=== PATIENT | male | born 1995 | race Caucasian/White ===

== ENCOUNTER 2016-11-04 21:09 | Observation (INO) | payer OTHER ==
[2016-11-04] MEDS ORDERED: SODIUM CHLORIDE 0.9% 1,000 ML IV STA (21:50)
--- NOTE | 2016-11-04 22:22 | ED ---
General Adult HPI - General Chief complaint: Nausea/Vomiting/Diarrhea Stated complaint: Diarrhea Time Seen by Provider: 11/04/16 21:33 Source: patient, family, RN notes reviewed Mode of arrival: wheelchair Limitations: no limitations - History of Present Illness Initial comments: 21-year-old male with past medical history of cerebral palsy presents with a one -day history of watery diarrhea. Patient also complains of crampy abdominal pain. States he has had many episodes of watery diarrhea with mucus. There is no blood in the diarrhea. Patient was recently treated for C. difficile colitis he completed a 14 day course of metronidazole which finished approximately one week ago. Patient had received amoxicillin for dental prophylaxis prior to initial episode of C. diff colitis. Patient is not currently on any medications. He denies fever. - Related Data Home Medications Medication Instructions Recorded Confirmed No Known Home Medications [No 11/04/16 11/04/16 Known Home Medications] Allergies Allergy/AdvReac Type Severity Reaction Status Date / Time No Known Allergies Allergy Verified 11/04/16 22:01 Review of Systems ROS Statement: Those systems with pertinent positive or pertinent negative responses have been documented in the HPI. ROS Other: All systems not noted in ROS Statement are negative. Constitutional: Denies: fever, chills Endocrine: Denies: fatigue Gastrointestinal: Reports: abdominal pain, diarrhea Past Medical History Additional Past Medical History / Comment(s): CP History of Any Multi-Drug Resistant Organisms: C-DIFF Past Surgical History: Back Surgery, Orthopedic Surgery Additional Past Surgical History / Comment(s): Right hip replacement 2009, bilateral feet Past Psychological History: Anxiety Smoking Status: Never smoker Past Alcohol Use History: None Reported Past Drug Use History: None Reported General Exam Limitations: no limitations General appearance: alert, in no apparent distress Head exam: Present: atraumatic, normocephalic Eye exam: Present: normal appearance, PERRL, EOMI ENT exam: Present: mucous membranes dry Respiratory exam: Present: normal lung sounds bilaterally Cardiovascular Exam: Present: normal rhythm, tachycardia GI/Abdominal exam: Present: soft, distended, tenderness (Mildly distended, mild generalized tenderness to palpation). Absent: guarding, rebound Extremities exam: Present: normal inspection. Absent: pedal edema Neurological exam: Present: alert, oriented X3, other (Patient is wheelchair bound secondary to cerebral palsy) Skin exam: Present: warm, dry Course Vital Signs 11/04/16 11/04/16 21:14 22:55 Temperature 98.7 F 98.2 F Pulse Rate 100 91 Respiratory 18 18 Rate Blood Pressure 185/100 154/80 O2 Sat by Pulse 100 95 Oximetry Medical Decision Making - Medical Decision Making 21-year-old male presenting with profuse watery diarrhea. Patient recent diagnosis treatment for C. diff colitis. He completed a course of Flagyl. On examination patient has mildly distended abdomen with mild diffuse tenderness to palpation. Dry mucous membranes and tachycardia noted. CBC and BMP are obtained and are unremarkable. C. difficile toxin assay and PCR are pending. Patient is started on metronidazole and oral vancomycin for presumed recurrence of C. difficile colitis. Abdominal x-ray: Negative for air-fluid levels, negative for free intraperitoneal air. Negative for obstruction. Diagnosis: diarrhea, dehydration, concern for C. difficile colitis failed outpatient treatment. Patient will be admitted to internal medicine. - Lab Data Result diagrams: 11/04/16 19:55 11/04/16 19:55 Lab Results 11/04/16 11/04/16 Range/Units 19:55 19:55 WBC 8.4 (3.8-10.6) k/uL RBC 5.67 (4.30-5.90) m/uL Hgb 16.7 (13.0-17.5) gm/dL Hct 47.3 (39.0-53.0) % MCV 83.5 (80.0-100.0) fL MCH 29.4 (25.0-35.0) pg MCHC 35.2 (31.0-37.0) g/dL RDW 13.3 (11.5-15.5) % Plt Count 189 (150-450) k/uL Neutrophils % 66 % Lymphocytes % 23 % Monocytes % 7 % Eosinophils % 2 % Basophils % 1 % Neutrophils # 5.5 (1.3-7.7) k/uL Lymphocytes # 2.0 (1.0-4.8) k/uL Monocytes # 0.6 (0-1.0) k/uL Eosinophils # 0.2 (0-0.7) k/uL Basophils # 0.0 (0-0.2) k/uL Sodium 142 (137-145) mmol/L Potassium 3.8 (3.5-5.1) mmol/L Chloride 103 (98-107) mmol/L Carbon Dioxide 25 (22-30) mmol/L Anion Gap 14 mmol/L BUN 20 (9-20) mg/dL Creatinine 0.83 (0.66-1.25) mg/dL Est GFR (MDRD) Af Amer >60 (>60 ml/min/1.73 sqM) Est GFR (MDRD) Non-Af >60 (>60 ml/min/1.73 sqM) Glucose 105 H (74-99) mg/dL Calcium 9.8 (8.4-10.2) mg/dL Total Bilirubin 1.7 H (0.2-1.3) mg/dL AST 18 (17-59) U/L ALT 36 (21-72) U/L Alkaline Phosphatase 49 (38-126) U/L Total Protein 7.8 (6.3-8.2) g/dL Albumin 5.0 (3.5-5.0) g/dL Disposition Clinical Impression: Dehydration, Clostridium difficile infection, Diarrhea Disposition: ADMITTED IP TO THIS [facility] Referrals: None,Stated [Primary Care Provider] - 1-2 days Decision to Admit Reason: Admit from EC Decision Date: 11/04/16 Decision Time: 22:22
[2016-11-04 22:26] LABS: Basophils % (A) 1 %; CH 29.8; CHCM 35.8; Eosinophils # (A) 0.2 k/uL (0-0.7); Eosinophils % (A) 2 %; HCT 47.3 % (39.0-53.0); HDW 2.83; HGB 16.7 gm/dL (13.0-17.5); Luc # (Auto) 0.12; Luc % (Auto) 2; Lymphocytes % (A) 23 %; MCH 29.4 pg (25.0-35.0); MCHC 35.2 g/dL (31.0-37.0); MCV 83.5 fL (80.0-100.0); Mean Platelet Volume 9.4; Monocytes # (A) 0.6 k/uL (0-1.0); Monocytes % (A) 7 %; Neutrophils # (A) 5.5 k/uL (1.3-7.7); Neutrophils % (A) 66 %; RBC 5.67 m/uL (4.30-5.90); RDW 13.3 % (11.5-15.5); WBC 8.4 k/uL (3.8-10.6)
[2016-11-04 22:38] LABS: ALT 36 U/L (21-72); AST 18 U/L (17-59); Alkaline Phosphatase 49 U/L (38-126); Anion Gap 14 mmol/L; Blood Urea Nitrogen 20 mg/dL (9-20); Calcium 9.8 mg/dL (8.4-10.2); Carbon Dioxide 25 mmol/L (22-30); Chloride 103 mmol/L (98-107); Glucose 105 mg/dL (74-99); Non-African American GFR(MDRD) >60 (>60 ml/min/1.73 sqM); Potassium 3.8 mmol/L (3.5-5.1); Sodium 142 mmol/L (137-145); Total Bilirubin 1.7 mg/dL (0.2-1.3); Total Protein 7.8 g/dL (6.3-8.2)
[2016-11-04] MEDS ORDERED: metroNIDAZOLE-NS PMX 500 MG in SALINE 1 100ML.BAG IVPB ONE (22:45)
[2016-11-04] MEDS ORDERED: NALOXONE 0.4 MG/ML 1 ML VIAL IV PRN (22:58)
--- NOTE | 2016-11-04 23:28 | XR ---
EXAM: XR Abdomen, 1 View CLINICAL HISTORY: Reason: pain TECHNIQUE: Frontal supine view of the abdomen/pelvis. COMPARISON: No relevant prior studies available. FINDINGS: Gastrointestinal tract: Bowel gas pattern is nonspecific with gas distributed throughout nondilated small and large bowel. No evidence of bowel obstruction. Organs: No radiopaque renal calculi. Small calcifications in the lower pelvis bilaterally most likely representing calcified pelvic phleboliths. Bones/joints: Lumbar levoscoliosis. S1 spina bifida occulta. Previous right hip arthroplasty with heterotopic ossification about the right hip. IMPRESSION: No radiographic evidence of acute abdominal disease or bowel obstruction.
[2016-11-05 00:11] VITALS: BMI 23.3
[2016-11-05] MEDS: D5-0.45% NACL WITH KCL 30MEQ/L 1,000 ML IV SCH ×3 (00:15→16:22)
[2016-11-05] MEDS: VANCOMYCIN ORAL SOLUTION 250 MG/5 ML BOTTLE PO SCH ×2 (00:20→05:30)
[2016-11-05 06:58] LABS: Basophils % (A) 0 %; CH 29.1; CHCM 34.6; Eosinophils # (A) 0.3 k/uL (0-0.7); Eosinophils % (A) 4 %; HCT 42.6 % (39.0-53.0); HDW 2.88; HGB 15.1 gm/dL (13.0-17.5); Luc % (Auto) 3; Lymphocytes # (A) 1.6 k/uL (1.0-4.8); Lymphocytes % (A) 22 %; MCHC 35.5 g/dL (31.0-37.0); MCV 84.5 fL (80.0-100.0); Mean Platelet Volume 8.4; Monocytes # (A) 0.5 k/uL (0-1.0); Monocytes % (A) 7 %; Neutrophils # (A) 4.9 k/uL (1.3-7.7); Neutrophils % (A) 65 %; RBC 5.04 m/uL (4.30-5.90); WBC 7.5 k/uL (3.8-10.6)
[2016-11-05 07:21] LABS: Anion Gap 14 mmol/L; Blood Urea Nitrogen 13 mg/dL (9-20); Calcium 9.1 mg/dL (8.4-10.2); Carbon Dioxide 19 mmol/L (22-30); Chloride 110 mmol/L (98-107); Glucose 112 mg/dL (74-99); Non-African American GFR(MDRD) >60 (>60 ml/min/1.73 sqM); Potassium 3.9 mmol/L (3.5-5.1); Sodium 143 mmol/L (137-145)
[2016-11-05] MEDS ORDERED: metroNIDAZOLE-NS PMX 500 MG in SALINE 1 100ML.BAG IVPB SCH (09:00)
[2016-11-05] MEDS: CHOLESTYRAMINE (WITH SUGAR) 4 GM PACKET PO SCH (16:22)
[2016-11-06] MEDS: D5-0.45% NACL WITH KCL 30MEQ/L 1,000 ML IV SCH (05:22)
[2016-11-06] MEDS: CHOLESTYRAMINE (WITH SUGAR) 4 GM PACKET PO SCH ×2 (07:13→09:35)
[2016-11-06] MEDS: VANCOMYCIN ORAL SOLUTION 250 MG/5 ML BOTTLE PO SCH (07:14)
[2016-11-06 07:49] LABS: Anion Gap 10 mmol/L; Blood Urea Nitrogen 11 mg/dL (9-20); Calcium 9.4 mg/dL (8.4-10.2); Carbon Dioxide 25 mmol/L (22-30); Chloride 109 mmol/L (98-107); Glucose 101 mg/dL (74-99); Non-African American GFR(MDRD) >60 (>60 ml/min/1.73 sqM); Potassium 4.5 mmol/L (3.5-5.1); Sodium 144 mmol/L (137-145)
[2016-11-06 07:50] VITALS: BP 144/88; RESP 17; TEMP 97.4
[2016-11-06 08:39] VITALS: PULSE 96
--- NOTE | 2016-11-07 17:12 | P.DS ---
Providers Date of admission: 11/04/16 22:58 Attending physician: Tomi Barrios Primary care physician: Stated None Hospital Course: He was admitted with diarrhea patient is a recent C. diff for because of which there was a concern of C. diff patient was started on oral vancomycin which was subsequently discontinued. Patient was tested for C. diff with Lita testing which was negative twice. Patient was subsequently discharged on symptomatically treatment with Questran patient's symptoms were improved with Questran. PHYSICAL EXAMINATION: GENERAL: The patient is alert and oriented x3, not in any acute distress. Well developed, well nourished. HEENT: Pupils are round and equally reacting to light. EOMI. No scleral icterus. No conjunctival pallor. Normocephalic, atraumatic. No pharyngeal erythema. No thyromegaly. CARDIOVASCULAR: S1 and S2 present. No murmurs, rubs, or gallops. PULMONARY: Chest is clear to auscultation, no wheezing or crackles. ABDOMEN: Soft, nontender, nondistended, normoactive bowel sounds. No palpable organomegaly. MUSCULOSKELETAL: No joint swelling or deformity. EXTREMITIES: No cyanosis, clubbing, or pedal edema. NEUROLOGICAL: Gross neurological examination did not reveal any focal deficits. SKIN: No rashes. Plan - Discharge Summary New Discharge Prescriptions: New Cholestyramine (with Sugar) [Questran Packet] 4 gm PO TID BETWEEN MEALS #30 packet L.acidoph,Paracasei, B.lactis [Probiotic] 1 each PO BID #30 capsule Discharge Medication List Cholestyramine (with Sugar) [Questran Packet] 4 gm PO TID BETWEEN MEALS #30 packet 11/06/16 [Rx] L.acidoph,Paracasei, B.lactis [Probiotic] 1 each PO BID #30 capsule 11/06/16 [Rx ] Follow up Appointment(s)/Referral(s): None,Stated [Primary Care Provider] - 1-2 days (Please call your primary care doctor for a follow up appointment ) Patient Instructions/Handouts: Dehydration (DC), Acute Diarrhea (GEN) Discharge Disposition: HOME SELF-CARE
--- NOTE | 2016-11-08 07:09 | HP ---
A 21-year-old with history of cerebral palsy, came in because of watery diarrhea , multiple episodes which started yesterday and patient still had 3 episodes. The patient's C. difficile at this time is negative. Patient was treated about a week ago, completed therapy for Clostridium difficile colitis with oral vancomycin about a week ago. I completed 10 days of therapy and first C. difficile testing was negative because of which I repeated another C. difficile testing because the testing is basically ( ) which sensitivity of which is low, although PCR is going to be positive because the patient was recently treated for C. difficile and most of the times it is expected to be positive for a month to 2 months to complete treatment of C. difficile and since patient was still having diarrhea will ( ) symptomatic treatment with Questran and see how he responds and we will keep the patient today here because of continued diarrhea and concerns of dehydration, although patient is not significantly dehydrated at this point of time. The patient's mother was also treated for C. difficile ( ) because of which there was significant concern about C. difficile because of which I repeated C. difficile ( ) which came back negative again. REVIEW OF SYSTEMS: ( ) GASTROINTESTINAL: As described in HPI. The patient also has crampy abdominal pain secondary to diarrhea. HOME MEDICATIONS: None. PAST MEDICAL HISTORY: Significant for C. difficile colitis and patient had back surgery, orthopedic surgery. SOCIAL HISTORY: Denied any smoking or alcohol abuse or any drug abuse. FAMILY HISTORY: No significant family history of hypertension or diabetes in the family. PHYSICAL EXAMINATION: Temperature 98.7, pulse of 91, respiratory rate of 18, blood pressure 154/80 saturating at 95% on room air. ( ) ABDOMINAL EXAMINATION: The patient's abdomen is soft, nontender, although patient does have hyperactive bowel sounds. ( ) LABORATORY DATA: CBC, CMP no significant abnormality was appreciated, although patient is ( ). The patient is appropriately on half normal saline. Because of the hyperchloremia. The patient's bicarbonate is a bit low. The patient was started on cholestyramine. ASSESSMENT AND PLAN: 1. Diarrhea, may be related to gastroenteritis, ruled out Clostridium difficile. Will continue to monitor today. Patient will be discharged on symptomatic treatment, possibility of discharge tomorrow. 2. Recent Clostridium difficile. 3. Chemical dehydration. 4. Acidosis, nonanion gap secondary to hyperchloremia, because of which patient is on half normal saline. 5. History of cerebral palsy for which supportive management. Most probably patient will be discharged tomorrow if patient's symptoms of diarrhea improve. MTDD
== END 2016-11-06 14:08 | disposition home or self-care (01) ==
LOC: EC 21:09 → INTOOBSV 22:58 → 3SUR 22:58 → EEVIPCON 22:58
PROVIDERS: ADMIT Internal Medicine; ATTEND Internal Medicine
DX: R19.7 Diarrhea, unspecified (principal); G80.9 Cerebral palsy, unspecified; F41.9 Anxiety disorder, unspecified; R00.0 Tachycardia, unspecified; E86.0 Dehydration; E87.2 Acidosis; Z86.19 Personal history of other infectious and parasitic diseases
CPT/HCPCS: 96365 ×2; 99285 ×2; 96366; 36415; 80053; 80048 ×2; 85025 ×2; 87324 ×2; 74000; G0378 ×3

== ENCOUNTER 2024-05-02 18:39 | Emergency (ER) | payer OTHER ==
[2024-05-02 18:53] VITALS: RESP 20; TEMP 99.6
--- NOTE | 2024-05-02 19:18 | ED ---
URI HPI - General Chief Complaint: Upper Respiratory Infection Stated Complaint: Influenza A/Cough/SOB Time Seen by Provider: 05/02/24 19:05 Source: patient, family, RN notes reviewed Mode of arrival: wheelchair Limitations: no limitations - History of Present Illness Initial Comments: 29-year-old male presents emergency department with mother for evaluation fever cough congestion patient has been sick for last 5 days reportedly assumed he had influenza A because mother tested positive but he tested negative. Mom states he is on Tamiflu symptoms have been worsening has had increasing cough congestion right ear pain and sore throat. Patient had mild diarrhea no vomiting patient does have a history of cerebral palsy. - Related Data Previous Rx's Medication Instructions Recorded Cholestyramine (with Sugar) 4 gm PO TID BETWEEN MEALS #30 11/06/16 [Questran Packet] packet L.acidoph,Paracasei, B.lactis 1 each PO BID #30 capsule 11/06/16 [Probiotic] Amoxic-Pot Clav 875-125Mg 1 tab PO Q12HR #20 tab 05/02/24 [Augmentin 875-125] Allergies Allergy/AdvReac Type Severity Reaction Status Date / Time No Known Allergies Allergy Verified 05/02/24 18:57 Review of Systems ROS Statement: Those systems with pertinent positive or pertinent negative responses have been documented in the HPI. ROS Other: All systems not noted in ROS Statement are negative. Past Medical History Additional Past Medical History / Comment(s): CP History of Any Multi-Drug Resistant Organisms: C-DIFF Date of last positivie culture/infection: 3 weeks ago MDRO Source:: stool sample Past Surgical History: Back Surgery, Orthopedic Surgery Additional Past Surgical History / Comment(s): Right hip replacement 2009, bilateral feet Past Anesthesia/Blood Transfusion Reactions: No Reported Reaction Past Psychological History: Anxiety Smoking Status: Never smoker Past Alcohol Use History: Occasional Past Drug Use History: None Reported - Past Family History Mother Family Medical History: No Reported History Father Family Medical History: No Reported History Sister(s) Family Medical History: No Reported History General Exam Limitations: no limitations General appearance: alert, in no apparent distress Head exam: Present: atraumatic, normocephalic, normal inspection Eye exam: Present: normal appearance, PERRL, EOMI. Absent: scleral icterus, conjunctival injection, periorbital swelling ENT exam: Present: normal exam, normal oropharynx, mucous membranes moist Neck exam: Present: normal inspection, full ROM. Absent: tenderness, meningismus, lymphadenopathy Respiratory exam: Present: normal lung sounds bilaterally. Absent: respiratory distress, wheezes, rales, rhonchi, stridor Cardiovascular Exam: Present: normal rhythm, tachycardia, normal heart sounds. Absent: systolic murmur, diastolic murmur, rubs, gallop, clicks GI/Abdominal exam: Present: soft, normal bowel sounds. Absent: distended, tenderness, guarding, rebound, rigid Course Vital Signs 05/02/24 05/02/24 18:45 21:58 Temperature 99.6 F Pulse Rate 130 H 82 Respiratory 20 20 Rate Blood Pressure 154/99 144/88 O2 Sat by Pulse 96 97 Oximetry Medical Decision Making - Medical Decision Making Was pt. sent in by a medical professional or institution (, PA, OUTSOLE BEVELER, urgent care, hospital, or senior care...) When possible be specific @ -No Did you speak to anyone other than the patient for history (EMS, parent, family, police, friend...)? What history was obtained from this source @ -No Did you review nursing and triage notes (agree or disagree)? Why? @ -I reviewed and agree with nursing and triage notes Were old charts reviewed (outside hosp., previous admission, EMS record, old EKG, old radiological studies, urgent care reports/EKG's, senior care records)? Report findings @ -No old charts were reviewed Differential Diagnosis (chest pain, altered mental status, abdominal pain women, abdominal pain men, vaginal bleeding, weakness, fever, dyspnea, syncope, headache, dizziness, GI bleed, back pain, seizure, CVA, palpatations, mental health, musculoskeletal)? @ -COVID 19, RSV, influenza, pneumonia, acute bronchitis, URI, this list is not all inclusive EKG interpreted by me (3pts min.). @ -None none X-rays interpreted by me (1pt min.). @ -Chest x-ray shows no definite infiltrate CT interpreted by me (1pt min.). @ -None done U/S interpreted by me (1pt. min.). @ -None done What testing was considered but not performed or refused? (CT, X-rays, U/S, lab s)? Why? @ -None What meds were considered but not given or refused? Why? @ -None Did you discuss the management of the patient with other professionals (professionals i.e. , PA, OUTSOLE BEVELER, lab, RT, psych nurse, delinquency prevention social worker, donor services team leader, teacher, information management officer, case resolution specialist)? Give summary @ -No Was smoking cessation discussed for >3mins.? @ -No Was critical care preformed (if so, how long)? @ -No Were there social determinants of health that impacted care today? How? (Homelessness, low income, unemployed, alcoholism, drug addiction, transportation, low edu. Level, literacy, decrease access to med. care, prison, rehab)? @ -No Was there de-escalation of care discussed even if they declined (Discuss DNR or withdrawal of care, Hospice)? DNR status @ -No What co-morbidities impacted this encounter? (DM, HTN, Smoking, COPD, CAD, Cancer, CVA, ARF, Chemo, Hep., AIDS, mental health diagnosis, sleep apnea, morbid obesity)? @ -Cerebral palsy Was patient admitted / discharged? Hospital course, mention meds given and route, prescriptions, significant lab abnormalities, going to OR and other pertinent info. @ -Discharge patient presented for evaluation of fever cough congestion. Patient negative swab discussed this may be related to tracheobronchitis. Patient was started on antibiotics given increasing congestion concerning for developing pneumonia. Undiagnosed new problem with uncertain prognosis? @ -No Drug Therapy requiring intensive monitoring for toxicity (Heparin, Nitro, Insulin, Cardizem)? @ -No Were any procedures done? @ -No Diagnosis/symptom? @ -Tracheobronchitis Acute, or Chronic, or Acute on Chronic? @ -Acute Uncomplicated (without systemic symptoms) or Complicated (systemic symptoms)? @ -Uncomplicated Side effects of treatment? @ -No Exacerbation, Progression, or Severe Exacerbation? @ -No Poses a threat to life or bodily function? How? (Chest pain, [place], [place], pneumonia, PE, COPD, DKA, ARF, appy, cholecystitis, CVA, Diverticulitis, Homicidal, Suicidal, threat to staff... and all critical care pts) @ -No - Lab Data Lab Results 05/02/24 Range/Units 20:10 Influenza Type A (PCR) Not Detected (Not Detectd) Influenza Type B (PCR) Not Detected (Not Detectd) RSV (PCR) Not Detected (Not Detectd) SARS-CoV-2 (PCR) Not Detected (Not Detectd) Disposition Clinical Impression: Tracheobronchitis Disposition: HOME SELF-CARE Condition: Stable Instructions (If sedation given, give patient instructions): Upper Respiratory Infection (ED) Additional Instructions: Please return to the Emergency Department if symptoms worsen or any other concerns. Prescriptions: Amoxic-Pot Clav 875-125Mg [Augmentin 875-125] 1 tab PO Q12HR #20 tab Is patient prescribed a controlled substance at d/c from ED?: No Referrals: Brad Eng Jr, [Primary Care Provider] - 1-2 days Time of Disposition: 21:27
--- NOTE | 2024-05-02 19:44 | XR ---
EXAMINATION TYPE: XR chest 1V DATE OF EXAM: 05/02/2024 7:39 PM COMPARISON: None. CLINICAL INDICATION: Male, 29 years old with history of fever; [facility] TECHNIQUE: XR chest 1V Frontal view of the chest. FINDINGS: Lungs/Pleura: There is no evidence of pleural effusion, focal consolidation, or pneumothorax. Pulmonary vascularity: Unremarkable. Heart/mediastinum: Cardiomediastinal silhouette is unremarkable. Musculoskeletal: No acute osseous pathology. Other findings: None IMPRESSION: No acute cardiopulmonary disease/process. [facility], , 05/02/2024 7:42 PM
[2024-05-02] MEDS: IBUPROFEN 600 MG TAB PO STA (19:56)
[2024-05-02] MEDS: ACETAMINOPHEN TAB 500 MG TAB PO STA (19:56)
[2024-05-02] MEDS: AMOXIC-POT CLAV 875MG STARTER PACK 2 TAB BTL PO STA (21:51)
[2024-05-02] MEDS: AMOXIC-POT CLAV 875-125MG 1 EACH TAB PO STA (21:51)
[2024-05-02 21:59] VITALS: BP 144/88; PULSE 82
== END 2024-05-02 21:58 | disposition home or self-care (01) ==
LOC: EC 18:39
DX: J40 Bronchitis, not specified as acute or chronic (principal); G80.9 Cerebral palsy, unspecified
CPT/HCPCS: 71045; 87636; 99284

== ENCOUNTER 2024-05-18 01:17 | Emergency (ER) | payer OTHER ==
--- NOTE | 2024-05-18 01:37 | ED ---
General Adult HPI - General Chief complaint: Skin/Abscess/Foreign Body Stated complaint: rash Time Seen by Provider: 05/18/24 01:20 Source: patient, family, RN notes reviewed Mode of arrival: wheelchair Limitations: physical limitation - History of Present Illness Initial comments: Patient is a 29 year old male with a past medical history of cerebral palsy presents for a rash after a Rocephin injection today. His mom is with him and provides most of the history. She states that he has been diagnosed with pneumonia and recieved a Rocephin injection today from Dr. Eng's office. She states he recieved the injection at 4pm and the rash started at 9pm. She states the rash was on his arms, stomach, back, at the injection site, and over the are of his previous hip replacement. She states she gave him Benadryl and the rash went away, but came back. She notes giving him another dose of Benadryl about 30 minutes ago and the rash is now gone. He denies any breathing issues assosciated with the rash. He endorses mild itching and endorses the rash as "blotchy". Of note, mom states he will be seeing Dr. Eng tomorrow and he has prescribed him Levofloxacin. She states that Dr. Eng told her he has recieved Rocephin before in the past, without a reaction. - Related Data Previous Rx's Medication Instructions Recorded Cholestyramine (with Sugar) 4 gm PO TID BETWEEN MEALS #30 11/06/16 [Questran Packet] packet L.acidoph,Paracasei, B.lactis 1 each PO BID #30 capsule 11/06/16 [Probiotic] Amoxic-Pot Clav 875-125Mg 1 tab PO Q12HR #20 tab 05/02/24 [Augmentin 875-125] Levofloxacin [Levaquin] 500 mg PO DAILY #10 tab 05/18/24 Allergies Allergy/AdvReac Type Severity Reaction Status Date / Time ceftriaxone [From Rocephin] Allergy Rash/Hives Verified 05/18/24 01:56 Review of Systems ROS Statement: Those systems with pertinent positive or pertinent negative responses have been documented in the HPI. ROS Other: All systems not noted in ROS Statement are negative. Past Medical History Additional Past Medical History / Comment(s): CP History of Any Multi-Drug Resistant Organisms: C-DIFF Date of last positivie culture/infection: 3 weeks ago MDRO Source:: stool sample Past Surgical History: Back Surgery, Orthopedic Surgery Additional Past Surgical History / Comment(s): Right hip replacement 2009, bilateral feet Past Anesthesia/Blood Transfusion Reactions: No Reported Reaction Past Psychological History: Anxiety Smoking Status: Never smoker Past Alcohol Use History: Occasional Past Drug Use History: None Reported - Past Family History Mother Family Medical History: No Reported History Father Family Medical History: No Reported History Sister(s) Family Medical History: No Reported History General Exam General appearance: alert, in no apparent distress Respiratory exam: Present: normal lung sounds bilaterally, rhonchi. Absent: respiratory distress, wheezes, rales, stridor Cardiovascular Exam: Present: regular rate, normal rhythm, tachycardia, normal heart sounds. Absent: systolic murmur, diastolic murmur, rubs, gallop, clicks GI/Abdominal exam: Present: soft, normal bowel sounds. Absent: distended, tenderness, guarding, rebound, rigid Neurological exam: Present: alert, oriented X3, CN II-XII intact Psychiatric exam: Present: normal affect, normal mood Skin exam: Present: warm, dry, intact, normal color. Absent: rash Course Vital Signs 05/18/24 05/18/24 01:18 02:01 Temperature 98.4 F 98.9 F Pulse Rate 130 H 81 Respiratory 20 17 Rate Blood Pressure 156/92 143/91 O2 Sat by Pulse 99 95 Oximetry Medical Decision Making - Medical Decision Making Was pt. sent in by a medical professional or institution (, PA, RADIATOR FITTER, urgent care, hospital, or correction...) When possible be specific @ -No Did you speak to anyone other than the patient for history (EMS, parent, family, police, friend...)? What history was obtained from this source @ -No Did you review nursing and triage notes (agree or disagree)? Why? @ -I reviewed and agree with nursing and triage notes Were old charts reviewed (outside hosp., previous admission, EMS record, old EKG, old radiological studies, urgent care reports/EKG's, correction records)? Report findings @ -No old charts were reviewed Differential Diagnosis (chest pain, altered mental status, abdominal pain women, abdominal pain men, vaginal bleeding, weakness, fever, dyspnea, syncope, headache, dizziness, GI bleed, back pain, seizure, CVA, palpatations, mental health, musculoskeletal)? @ -Allergic reaction, contact dermatitis, viral rash EKG interpreted by me (3pts min.). @ -None X-rays interpreted by me (1pt min.). @ -None done CT interpreted by me (1pt min.). @ -None done U/S interpreted by me (1pt. min.). @ -None done What testing was considered but not performed or refused? (CT, X-rays, U/S, labs)? Why? @ -None What meds were considered but not given or refused? Why? @ -None Did you discuss the management of the patient with other professionals (professionals i.e. , PA, RADIATOR FITTER, lab, RT, psych nurse, licensed master social worker, scheduling representative, teacher, hotel security officer, patient case manager)? Give summary @ -No Was smoking cessation discussed for >3mins.? @ -No Was critical care preformed (if so, how long)? @ -No Were there social determinants of health that impacted care today? How? (Homelessness, low income, unemployed, alcoholism, drug addiction, transportation, low edu. Level, literacy, decrease access to med. care, fci, rehab)? @ -No Was there de-escalation of care discussed even if they declined (Discuss DNR or withdrawal of care, Hospice)? DNR status @ -No What co-morbidities impacted this encounter? (DM, HTN, Smoking, COPD, CAD, Cancer, CVA, ARF, Chemo, Hep., AIDS, mental health diagnosis, sleep apnea, morbid obesity)? @ -None Was patient admitted / discharged? Hospital course, mention meds given and route, prescriptions, significant lab abnormalities, going to OR and other pertinent info. @ -Discharge patient currently asymptomatic patient was given steroid we did discuss treating remaining pneumonia with Levaquin return parameters cristal. Undiagnosed new problem with uncertain prognosis? @ -No Drug Therapy requiring intensive monitoring for toxicity (Heparin, Nitro, Insulin, Cardizem)? @ -No Were any procedures done? @ -No Diagnosis/symptom? @ -Allergic reaction, pneumonia Acute, or Chronic, or Acute on Chronic? @ -Acute Uncomplicated (without systemic symptoms) or Complicated (systemic symptoms)? @ -[Complicated Side effects of treatment? @ -No Exacerbation, Progression, or Severe Exacerbation? @ -No Poses a threat to life or bodily function? How? (Chest pain, [place], [place], pneumonia, PE, COPD, DKA, ARF, appy, cholecystitis, CVA, Diverticulitis, Homicidal, Suicidal, threat to staff... and all critical care pts) @ -No Disposition Clinical Impression: Allergic reaction, Pneumonia Disposition: HOME SELF-CARE Condition: Stable Additional Instructions: Please return to the Emergency Department if symptoms worsen or any other concerns. Prescriptions: Levofloxacin [Levaquin] 500 mg PO DAILY #10 tab Is patient prescribed a controlled substance at d/c from ED?: No Referrals: Brad Eng Jr, DO [Primary Care Provider] - 1-2 days Time of Disposition: 01:48
[2024-05-18] MEDS: LEVOFLOXACIN 500 MG TAB PO STA (01:53)
[2024-05-18] MEDS: methylPREDNISolone SOD SUCCI 125 MG/2 ML VIAL IM ONE (01:53)
[2024-05-18 02:14] VITALS: BP 143/91; PULSE 81; RESP 17; TEMP 98.9
== END 2024-05-18 02:15 | disposition home or self-care (01) ==
LOC: EC 01:17
DX: T78.40XA Allergy, unspecified, initial encounter (principal); J18.9 Pneumonia, unspecified organism; Z88.1 Allergy status to other antibiotic agents
CPT/HCPCS: 99282; 96372; J2919